=== PATIENT | male | born 1995 | race Caucasian/White ===

== ENCOUNTER 2023-08-20 21:59 | Emergency (ER) | payer MEDICAID, OTHER ==
[~2023-08-20] VITALS: Ht 172.7 cm; Wt 64.0 kg
[2023-08-20] MEDS ORDERED: BENZONATATE 100 MG CAPSULE PO STA (23:07)
[2023-08-20 23:10] VITALS: BP 106/71; TEMP 98.1
[2023-08-20] MEDS ORDERED: BENZONATATE 100 MG CAPSULE PO ONE (23:12)
[2023-08-21] MEDS ORDERED: BENZ-13 PO (00:22)
[2023-08-21] MEDS ORDERED: DIPH50CA4 PO (00:22)
[2023-08-21 00:41] VITALS: O2SAT 98
== END 2023-08-21 00:50 | disposition home or self-care (01) ==
LOC: ER 22:03
DX: J06.9 Acute upper respiratory infection, unspecified (principal); Z79.899 Other long term (current) drug therapy